=== PATIENT | female | born 1970 | race Caucasian/White ===

== ENCOUNTER 2025-05-13 13:35 | Emergency (ER) | payer MEDICAID ==
[~2025-05-13] VITALS: Ht 167.6 cm; Wt 75.0 kg
[2025-05-13 13:46] VITALS: O2SAT 99
[2025-05-13 15:02] LABS: PLATELET 213 x1000/uL (130-400); RED BLOOD CELL COUNT 4.30 mill/uL (4.2-5.4); RED CELL DISTRIBUTION WIDTH 13.2 % (11.6-14.6)
[2025-05-13 15:09] LABS: CLARITY URINE CLEAR (CLEAR); COLOR URINE YELLOW (YELLOW); GLUCOSE URINE NEGATIVE (NEGATIVE); KETONES URINE NEGATIVE (NEGATIVE); LEUKOCYTE ESTERASE URINE TRACE (NEGATIVE); NITRITE URINE NEGATIVE (NEGATIVE); OCCULT BLOOD URINE NEGATIVE (NEGATIVE); PH URINE 5.5 (4.5-8.0); PROTEIN URINE NEGATIVE (NEGATIVE); SPECIFIC GRAVITY URINE 1.009 (1.005-1.030); UROBILINOGEN URINE 0.2 E.U./dL (0.2-1.0)
[2025-05-13 15:15] LABS: CREATININE 1.0 mg/dL (0.6-1.0); PROTEIN TOTAL 7.2 g/dL (6.0-8.3); UREA NITROGEN BLOOD 10 mg/dL (9-23)
[2025-05-13 15:17] LABS: ASPARTATE AMINOTRANSFERASE 17 IU/L (<34); BILIRUBIN TOTAL 0.6 mg/dL (0.1-1.0)
[2025-05-13 15:20] LABS: SQUAMOUS EPITHELIAL CELL URINE 2+ /lpf (RARE/1+)
[2025-05-13 15:21] LABS: RBC URINE 0-2 /hpf (0-2)
[2025-05-13 15:22] LABS: BACTERIA URINE 2+
[2025-05-13] MEDS ORDERED: CEFP200T14 MT (16:40)
[2025-05-13 17:01] VITALS: BP 110/75; PULSE 89; RESP 16; TEMP 37.4; O2SAT 99
== END 2025-05-13 17:02 | disposition home or self-care (01) ==
LOC: ER 13:35
DX: N39.0 Urinary tract infection, site not specified (principal); R50.83 Postvaccination fever; Z90.49 Acquired absence of other specified parts of digestive tract; Z90.89 Acquired absence of other organs
CPT/HCPCS: 36415; 71045; 80053; 81003; 85027; 99284